=== PATIENT | male | born 1960 | race Caucasian/White ===

== ENCOUNTER 2017-02-05 12:43 | Inpatient (IN) | payer MEDICAID ==
[~2017-02-05] VITALS: Ht 182.9 cm; Wt 70.3 kg
[2017-02-05] MEDS ORDERED: IOHEXOL-300 100 ML BOTTLE ONE (13:26)
[2017-02-05] MEDS ORDERED: SODIUM CHLORIDE 0.9% 10ML VIAL ONE (13:26)
[2017-02-05] MEDS ORDERED: SODIUM CHLORIDE 0.9% 1000ML BAG (SEPSIS BOLUS) IV ONE (13:30)
[2017-02-05 13:53] LABS: BASOPHILS % 1.2 % (0.0-2.0); EOSINOPHILS % 0.5 % (0.0-5.0); HEMATOCRIT. 37.4 % (42.0-52.0); HEMOGLOBIN. 12.7 g/dL (14.0-18.0); LYMPHOCYTES % 19.9 % (20.0-50.0); MEAN CORPUSCULAR HEMOGLOBIN 31.3 pg (28.0-32.0); MEAN CORPUSCULAR VOLUME 92.5 fL (80.0-94.0); MEAN PLATELET VOLUME 8.1 fl (7.4-10.4); MONOCYTES % 7.6 % (2.0-8.0); NEUTROPHILS % 70.8 % (40.0-76.0); PLATELET 250 x1000/uL (130-400); RED BLOOD CELL COUNT 4.04 mill/uL (4.7-6.1); RED CELL DISTRIBUTION WIDTH 14.2 % (11.6-14.6)
[2017-02-05 13:55] LABS: PARTIAL THROMBOPLASTIN TIME 28.4 sec (23.4-31.0); PROTHROMBIN TIME 10.7 sec (9.4-11.6)
[2017-02-05 14:01] LABS: CARBON DIOXIDE 23 mEq/L (21-32); CHLORIDE 105 mEq/L (98-107); ETHANOL BLOOD 64 mg/dL
[2017-02-05 14:04] LABS: TROPONIN I < 0.02 ng/mL (0.00-0.04)
[2017-02-05] MEDS ORDERED: POTASSIUM CHLORIDE 20MEQ TABLET SR PO ONE (14:30)
[2017-02-05] MEDS ORDERED: MAGNESIUM 1 G PREMIX 100 ML IV ONE (14:30)
[2017-02-05 14:35] LABS: CLARITY URINE TURBID (CLEAR); COLOR URINE YELLOW (YELLOW); GLUCOSE URINE TRACE (NEGATIVE); KETONES URINE NEGATIVE (NEGATIVE); LEUKOCYTE ESTERASE URINE 3+ (NEGATIVE); NITRITE URINE NEGATIVE (NEGATIVE); OCCULT BLOOD URINE 1+ (NEGATIVE); PH URINE 7.5 (4.5-8.0); PROTEIN URINE 3+ (NEGATIVE); SPECIFIC GRAVITY URINE 1.012 (1.005-1.030); UROBILINOGEN URINE 0.2 E.U./dL (0.2-1.0)
[2017-02-05 14:57] LABS: *AMPHETAMINES SCREEN URINE NEGATIVE (NEGATIVE); *BARBITURATES SCREEN URINE NEGATIVE (NEGATIVE); *BENZODIAZEPINES SCREEN URINE NEGATIVE (NEGATIVE); *COCAINE SCREEN URINE NEGATIVE (NEGATIVE); CANNABINOID URINE SCREEN NEGATIVE (NEGATIVE); METHADONE URINE SCREEN NEGATIVE (NEGATIVE); OPIATES URINE SCREEN NEGATIVE (NEGATIVE); PHENCYCLIDINE URINE SCREEN NEGATIVE (NEGATIVE)
[2017-02-05] MEDS ORDERED: CEFTRIAXONE 1 G PREMIX 50 ML IV ONE (15:30)
[2017-02-05] MEDS ORDERED: HYDROCODONE/ACETAMINOPHEN 5/325MG TABLET PO PRN (17:30)
[2017-02-05] MEDS ORDERED: ONDANSETRON HCL 4MG/2ML VIAL IV PRN (17:30)
[2017-02-05] MEDS: LORAZEPAM 2MG/ML CPJ IV PRN ×2 (18:00→23:39)
[2017-02-05 22:50] VITALS: BP 168/88
[2017-02-05 23:00] VITALS: BP 168/88
[2017-02-05] MEDS ORDERED: DEXT 5%/0.45% NACL 500ML 500 ML IV ONE (23:00)
[2017-02-06] VITALS: BP 149/81
[2017-02-06] MEDS ORDERED: ASPI-1159 PO (00:24)
[2017-02-06] MEDS ORDERED: TRAZ-132 PO (00:24)
[2017-02-06] MEDS ORDERED: HYDR-523 PO (00:24)
[2017-02-06] MEDS ORDERED: PANT40TA4 PO (00:24)
[2017-02-06] MEDS: DEXT 5%/0.45% NACL KCL 20MEQ/L 1,000 ML IV SCH ×2 (03:15→13:39)
[2017-02-06 04:00] VITALS: BP 159/84
[2017-02-06] MEDS: LORAZEPAM 2MG/ML CPJ IV PRN ×3 (07:00→20:19)
[2017-02-06 07:49] LABS: BASOPHILS % 0.7 % (0.0-2.0); EOSINOPHILS % 0.5 % (0.0-5.0); HEMOGLOBIN. 13.3 g/dL (14.0-18.0); LYMPHOCYTES % 11.8 % (20.0-50.0); MEAN CORPUSCULAR HEMOGLOBIN 31.4 pg (28.0-32.0); MEAN CORPUSCULAR VOLUME 91.8 fL (80.0-94.0); MEAN PLATELET VOLUME 8.4 fl (7.4-10.4); MONOCYTES % 5.6 % (2.0-8.0); NEUTROPHILS % 81.4 % (40.0-76.0); PLATELET 237 x1000/uL (130-400); RED BLOOD CELL COUNT 4.25 mill/uL (4.7-6.1); RED CELL DISTRIBUTION WIDTH 13.9 % (11.6-14.6)
[2017-02-06 08:00] VITALS: BP 155/85
[2017-02-06 08:28] LABS: CHLORIDE 104 mEq/L (98-107)
[2017-02-06] MEDS: ENOXAPARIN 40MG/0.4ML SYR SUBCUT SCH (08:31)
[2017-02-06] MEDS: FAMOTIDINE 20MG/2ML VIAL IV SCH ×2 (08:31→20:19)
[2017-02-06 08:35] LABS: CARBON DIOXIDE 27 mEq/L (21-32)
[2017-02-06] MEDS ORDERED: PANTOPRAZOLE SODIUM 40 MG/VIAL IV SCH (09:00)
[2017-02-06 12:00] VITALS: BP 148/84
[2017-02-06 12:03] LABS: BASOPHILS % 0.7 % (0.0-2.0); EOSINOPHILS % 0.3 % (0.0-5.0); HEMATOCRIT. 38.9 % (42.0-52.0); HEMOGLOBIN. 13.2 g/dL (14.0-18.0); LYMPHOCYTES % 12.9 % (20.0-50.0); MEAN CORPUSCULAR HEMOGLOBIN 31.2 pg (28.0-32.0); MEAN CORPUSCULAR VOLUME 92.3 fL (80.0-94.0); MEAN PLATELET VOLUME 8.4 fl (7.4-10.4); NEUTROPHILS % 80.1 % (40.0-76.0); PLATELET 235 x1000/uL (130-400); RED BLOOD CELL COUNT 4.21 mill/uL (4.7-6.1); RED CELL DISTRIBUTION WIDTH 13.7 % (11.6-14.6)
[2017-02-06] MEDS ORDERED: PIPERACILLIN SODIUM/TAZOBACTAM 4.5 G in DEXT 5% WATER 100 ML IV SCH (15:00)
[2017-02-06 16:00] VITALS: BP 163/107
[2017-02-06] MEDS ORDERED: CLONIDINE 0.1MG TABLET PO PRN (16:00)
[2017-02-06] MEDS: CEFTRIAXONE 1 G PREMIX 50 ML IV SCH (16:07)
[2017-02-06 20:00] VITALS: BP 125/78
[2017-02-07] VITALS: BP 128/66
[2017-02-07] MEDS: DEXT 5%/0.45% NACL KCL 20MEQ/L 1,000 ML IV SCH ×2 (02:43→10:07)
[2017-02-07 04:00] VITALS: BP 149/81
[2017-02-07 06:27] LABS: BASOPHILS % 0.6 % (0.0-2.0); EOSINOPHILS % 1.8 % (0.0-5.0); HEMATOCRIT. 39.2 % (42.0-52.0); HEMOGLOBIN. 13.4 g/dL (14.0-18.0); LYMPHOCYTES % 19.4 % (20.0-50.0); MEAN CORPUSCULAR HEMOGLOBIN 31.8 pg (28.0-32.0); MEAN CORPUSCULAR VOLUME 93.1 fL (80.0-94.0); MEAN PLATELET VOLUME 8.3 fl (7.4-10.4); MONOCYTES % 7.3 % (2.0-8.0); NEUTROPHILS % 70.9 % (40.0-76.0); PLATELET 216 x1000/uL (130-400); RED BLOOD CELL COUNT 4.21 mill/uL (4.7-6.1); RED CELL DISTRIBUTION WIDTH 13.9 % (11.6-14.6)
[2017-02-07 06:32] LABS: CARBON DIOXIDE 29 mEq/L (21-32); CHLORIDE 107 mEq/L (98-107)
[2017-02-07 08:00] VITALS: BP 131/74
[2017-02-07] MEDS: FAMOTIDINE 20MG/2ML VIAL IV SCH (08:39)
[2017-02-07] MEDS: LORAZEPAM 2MG/ML CPJ IV PRN ×2 (08:40→15:13)
[2017-02-07] MEDS: ENOXAPARIN 40MG/0.4ML SYR SUBCUT SCH (08:40)
[2017-02-07 12:00] VITALS: BP 127/68
[2017-02-07] MEDS: CEFTRIAXONE 1 G PREMIX 50 ML IV SCH (15:12)
[2017-02-07 16:23] VITALS: BP 151/83
[2017-02-07 17:08] VITALS: BP 125/78
[2017-02-07] MEDS ORDERED: PHENAZOPYRIDINE HCL 100MG TABLET PO SCH (17:40)
== END 2017-02-07 17:25 | disposition home or self-care (01) | DRG 720 ==
LOC: ER 13:10 → 8WST 15:53 → INTOOBSV 15:53 → OBSVTOIN 15:53 → EDBEDREQ 15:54 → EDBEDREQTM 15:54 → ENRESERV 18:57 → CANRESERV 18:57 → EDBEDREQSVC 20:31 → ENRESERV 20:59
PROVIDERS: ADMIT Internal Medicine; ATTEND Internal Medicine
DX: A41.9 Sepsis, unspecified organism (principal); E43 Unspecified severe protein-calorie malnutrition; E83.42 Hypomagnesemia; N39.0 Urinary tract infection, site not specified; E83.51 Hypocalcemia; F32.9 Major depressive disorder, single episode, unspecified; E87.6 Hypokalemia; E86.0 Dehydration; F17.200 Nicotine dependence, unspecified, uncomplicated; F10.10 Alcohol abuse, uncomplicated; Z59.0 Homelessness; Z88.2 Allergy status to sulfonamides; Z88.8 Allergy status to other drugs, medicaments and biological substances
CPT/HCPCS: 36415; 71010; 74177; 80048; 80053; 80076; 80305; 81001; 83605; 83690; 83735; 83880; 84484; 85025; 85610; 85730; 87040; 87077; 87086; 87186; 93005; 96361; 96365; 96367; 96375; 96376; 99291; A4216; C1893; G0482; J0696; J1650; J2060; J2543; J3475; J3490; J7030; J7040; J7060; Q9967

== ENCOUNTER 2017-05-16 09:06 | Emergency (ER) | payer MEDICAID ==
[~2017-05-16] VITALS: Ht 177.8 cm; Wt 70.0 kg
[~2017-05-16 09:06] MED LIST: ASPI-1159 PO; HYDR-523 PO; PANT40TA4 PO; TRAZ-132 PO
[2017-05-16] MEDS ORDERED: SODIUM CHLORIDE 0.9% 3,000 ML IV ONE (10:10)
[2017-05-16 10:28] LABS: EOSINOPHILS % 1.1 % (0.0-5.0); HEMATOCRIT. 38.1 % (42.0-52.0); HEMOGLOBIN. 12.8 g/dL (14.0-18.0); LYMPHOCYTES % 22.9 % (20.0-50.0); MEAN CORPUSCULAR HEMOGLOBIN 32.4 pg (28.0-32.0); MEAN CORPUSCULAR VOLUME 96.5 fL (80.0-94.0); MEAN PLATELET VOLUME 7.5 fl (7.4-10.4); MONOCYTES % 12.2 % (2.0-8.0); NEUTROPHILS % 62.8 % (40.0-76.0); PLATELET 301 x1000/uL (130-400); RED BLOOD CELL COUNT 3.95 mill/uL (4.7-6.1); RED CELL DISTRIBUTION WIDTH 15.1 % (11.6-14.6)
[2017-05-16 11:27] LABS: GLUCOSE URINE NEGATIVE (NEGATIVE); KETONES URINE NEGATIVE (NEGATIVE); LEUKOCYTE ESTERASE URINE NEGATIVE (NEGATIVE); NITRITE URINE NEGATIVE (NEGATIVE); OCCULT BLOOD URINE 2+ (NEGATIVE); PROTEIN URINE NEGATIVE (NEGATIVE); SPECIFIC GRAVITY URINE 1.007 (1.005-1.030); UROBILINOGEN URINE 0.2 E.U./dL (0.2-1.0)
[2017-05-16 11:28] LABS: CLARITY URINE CLEAR (CLEAR); COLOR URINE YELLOW (YELLOW)
[2017-05-16 13:39] VITALS: BP 143/72
== END 2017-05-16 15:33 | disposition home or self-care (01) ==
LOC: ER 09:06
DX: T83.098A Other mechanical complication of other urinary catheter, initial encounter (principal); F12.10 Cannabis abuse, uncomplicated; F32.9 Major depressive disorder, single episode, unspecified; F17.200 Nicotine dependence, unspecified, uncomplicated; R50.9 Fever, unspecified; Z59.0 Homelessness; Z79.82 Long term (current) use of aspirin; Z88.2 Allergy status to sulfonamides
CPT/HCPCS: 36415; 51702; 81001; 85025; 99284; Z7610; J7030; A4315

== ENCOUNTER 2017-06-18 18:40 | Emergency (ER) | payer MEDICAID ==
[~2017-06-18] VITALS: Ht 185.4 cm; Wt 69.0 kg
[2017-06-18 23:06] LABS: EOSINOPHILS % 2.2 % (0.0-5.0); HEMATOCRIT. 36.9 % (42.0-52.0); HEMOGLOBIN. 12.3 g/dL (14.0-18.0); LYMPHOCYTES % 25.1 % (20.0-50.0); MEAN CORPUSCULAR HEMOGLOBIN 31.8 pg (28.0-32.0); MEAN CORPUSCULAR VOLUME 95.3 fL (80.0-94.0); MEAN PLATELET VOLUME 7.7 fl (7.4-10.4); MONOCYTES % 10.4 % (2.0-8.0); NEUTROPHILS % 61.3 % (40.0-76.0); PLATELET 255 x1000/uL (130-400); RED BLOOD CELL COUNT 3.87 mill/uL (4.7-6.1); RED CELL DISTRIBUTION WIDTH 13.9 % (11.6-14.6)
[2017-06-18 23:12] LABS: PROTHROMBIN TIME 10.7 sec (9.4-11.6)
[2017-06-18 23:13] LABS: CHLORIDE 109 mEq/L (98-107)
[2017-06-18 23:23] LABS: CARBON DIOXIDE 26 mEq/L (21-32)
[2017-06-18 23:30] LABS: CLARITY URINE CLEAR (CLEAR); COLOR URINE YELLOW (YELLOW); KETONES URINE 1+ (NEGATIVE); LEUKOCYTE ESTERASE URINE 1+ (NEGATIVE); NITRITE URINE NEGATIVE (NEGATIVE); OCCULT BLOOD URINE NEGATIVE (NEGATIVE); PROTEIN URINE NEGATIVE (NEGATIVE); SPECIFIC GRAVITY URINE 1.024 (1.005-1.030); UROBILINOGEN URINE 0.2 E.U./dL (0.2-1.0)
[2017-06-19] MEDS ORDERED: KETOROLAC 30MG/ML VIAL IM ONE (00:45)
[2017-06-19] MEDS ORDERED: LIDOCAINE HCL 2% JELLY 5ML TOP ONE (01:15)
[2017-06-19 03:40] VITALS: BP 145/79
== END 2017-06-19 03:40 | disposition home or self-care (01) ==
LOC: ER 19:28
DX: N39.0 Urinary tract infection, site not specified (principal); F12.10 Cannabis abuse, uncomplicated; Z79.82 Long term (current) use of aspirin
CPT/HCPCS: 36415; 80053; 81001; 85025; 85610; 87077; 87086; 87186; 96372; 99284; J1885; Z7610; 99283; A4315

== ENCOUNTER 2017-07-23 20:44 | Emergency (ER) | payer MEDICAID ==
[~2017-07-23] VITALS: Ht 167.6 cm; Wt 70.0 kg
[2017-07-24] MEDS ORDERED: KETOROLAC 60MG/2ML VIAL IM ONE (04:00)
[2017-07-24 05:12] VITALS: BP 138/85
== END 2017-07-24 05:25 | disposition home or self-care (01) ==
LOC: ER 20:44
DX: R33.8 Other retention of urine (principal); M19.90 Unspecified osteoarthritis, unspecified site; F12.10 Cannabis abuse, uncomplicated; Z88.2 Allergy status to sulfonamides; Z88.1 Allergy status to other antibiotic agents; Z79.82 Long term (current) use of aspirin
CPT/HCPCS: 51702; 96372; 99284; J1885; Z7610; A4315

== ENCOUNTER 2017-09-11 10:04 | Emergency (ER) | payer MEDICAID ==
[~2017-09-11] VITALS: Ht 185.4 cm; Wt 80.0 kg
[2017-09-11] MEDS ORDERED: SODIUM CHLORIDE 0.9% 1,000 ML IV ONE ×2 (10:38→12:15)
[2017-09-11] MEDS ORDERED: DEXTROSE 50% WATER 50ML SYRINGE IV ONE ×2 (10:39→10:45)
[2017-09-11] MEDS ORDERED: FAMOTIDINE 20MG/2ML VIAL IV ONE (10:45)
[2017-09-11] MEDS ORDERED: DEXTROSE 50% WATER 50ML SYRINGE IV PRN (10:45)
[2017-09-11 11:07] LABS: HEMATOCRIT. 40.1 % (42.0-52.0); HEMOGLOBIN. 13.6 g/dL (14.0-18.0); MEAN CORPUSCULAR HEMOGLOBIN 30.5 pg (28.0-32.0); MEAN PLATELET VOLUME 8.4 fl (7.4-10.4); PLATELET 230 x1000/uL (130-400); RED BLOOD CELL COUNT 4.46 mill/uL (4.7-6.1)
[2017-09-11 11:09] LABS: CHLORIDE 101 mEq/L (98-107)
[2017-09-11 11:15] LABS: ETHANOL BLOOD 110 mg/dL
[2017-09-11 11:23] LABS: *AMPHETAMINES SCREEN URINE PRESUMTIVE POSITIVE (NEGATIVE); *BARBITURATES SCREEN URINE NEGATIVE (NEGATIVE); *BENZODIAZEPINES SCREEN URINE NEGATIVE (NEGATIVE); *COCAINE SCREEN URINE PRESUMTIVE POSITIVE (NEGATIVE); CANNABINOID URINE SCREEN NEGATIVE (NEGATIVE); METHADONE URINE SCREEN NEGATIVE (NEGATIVE); OPIATES URINE SCREEN NEGATIVE (NEGATIVE); PHENCYCLIDINE URINE SCREEN NEGATIVE (NEGATIVE)
[2017-09-11 11:45] LABS: PLATELET ESTIMATE NORMAL
[2017-09-11 13:52] VITALS: BP 171/91
== END 2017-09-11 14:59 | disposition home or self-care (01) ==
LOC: ER 10:10
DX: E86.0 Dehydration (principal); E46 Unspecified protein-calorie malnutrition; I10 Essential (primary) hypertension; F10.20 Alcohol dependence, uncomplicated; F12.10 Cannabis abuse, uncomplicated; Z79.82 Long term (current) use of aspirin; Z88.2 Allergy status to sulfonamides
CPT/HCPCS: 36415; 80053; 80305; 82962; 85025; 96361; 96374; 96375; 99284; G0482; J3490; J7030; Z7610

== ENCOUNTER 2017-09-12 16:11 | Emergency (ER) | payer MEDICAID ==
[~2017-09-12] VITALS: Ht 185.4 cm; Wt 71.0 kg
[2017-09-12 17:38] LABS: HEMATOCRIT. 40.4 % (42.0-52.0); HEMOGLOBIN. 13.7 g/dL (14.0-18.0); MEAN CORPUSCULAR HEMOGLOBIN 30.4 pg (28.0-32.0); MEAN PLATELET VOLUME 8.5 fl (7.4-10.4); PLATELET 218 x1000/uL (130-400); RED BLOOD CELL COUNT 4.49 mill/uL (4.7-6.1); RED CELL DISTRIBUTION WIDTH 15.4 % (11.6-14.6)
[2017-09-12 17:40] LABS: CHLORIDE 99 mEq/L (98-107)
[2017-09-12 17:46] LABS: ETHANOL BLOOD 91 mg/dL
[2017-09-12 17:54] LABS: PLATELET ESTIMATE NORMAL
[2017-09-12 18:40] LABS: CLARITY URINE CLOUDY (CLEAR); COLOR URINE YELLOW (YELLOW); KETONES URINE 1+ (NEGATIVE); LEUKOCYTE ESTERASE URINE 3+ (NEGATIVE); NITRITE URINE POSITIVE (NEGATIVE); OCCULT BLOOD URINE 1+ (NEGATIVE); PROTEIN URINE TRACE (NEGATIVE); UROBILINOGEN URINE 0.2 E.U./dL (0.2-1.0)
[2017-09-12 18:58] LABS: *BARBITURATES SCREEN URINE NEGATIVE (NEGATIVE); *BENZODIAZEPINES SCREEN URINE NEGATIVE (NEGATIVE)
[2017-09-12 18:59] LABS: *AMPHETAMINES SCREEN URINE NEGATIVE (NEGATIVE); *COCAINE SCREEN URINE PRESUMTIVE POSITIVE (NEGATIVE); METHADONE URINE SCREEN NEGATIVE (NEGATIVE); OPIATES URINE SCREEN NEGATIVE (NEGATIVE); PHENCYCLIDINE URINE SCREEN NEGATIVE (NEGATIVE)
[2017-09-12 19:01] LABS: CANNABINOID URINE SCREEN NEGATIVE (NEGATIVE)
[2017-09-12] MEDS ORDERED: CHLORDIAZEPOXIDE 25MG CAPSULE PO ONE (22:30)
[2017-09-12] MEDS ORDERED: TRAZODONE HCL 50MG TABLET PO ONE (22:30)
[2017-09-12] MEDS ORDERED: CEFTRIAXONE 1 G PREMIX 50 ML IV ONE (22:30)
[2017-09-12] MEDS ORDERED: TRAZODONE HCL 50MG TABLET PO SCH (23:59)
[2017-09-13] MEDS ORDERED: CHLORDIAZEPOXIDE 25MG CAPSULE PO ONE (06:30)
[2017-09-13 07:04] LABS: BASOPHILS % 0.6 % (0.0-2.0); EOSINOPHILS % 0.2 % (0.0-5.0); HEMATOCRIT. 38.1 % (42.0-52.0); HEMOGLOBIN. 12.9 g/dL (14.0-18.0); LYMPHOCYTES % 11.4 % (20.0-50.0); MEAN CORPUSCULAR VOLUME 88.8 fL (80.0-94.0); MEAN PLATELET VOLUME 8.4 fl (7.4-10.4); MONOCYTES % 8.7 % (2.0-8.0); NEUTROPHILS % 79.1 % (40.0-76.0); PLATELET 179 x1000/uL (130-400); RED BLOOD CELL COUNT 4.29 mill/uL (4.7-6.1); RED CELL DISTRIBUTION WIDTH 15.1 % (11.6-14.6)
[2017-09-13 09:10] VITALS: BP 116/78
== END 2017-09-13 10:40 | disposition home or self-care (01) ==
LOC: ER 16:33
DX: R45.851 Suicidal ideations (principal); R30.0 Dysuria; R35.0 Frequency of micturition; M54.5 Low back pain; M19.90 Unspecified osteoarthritis, unspecified site; F17.200 Nicotine dependence, unspecified, uncomplicated; F12.10 Cannabis abuse, uncomplicated; F14.10 Cocaine abuse, uncomplicated; Z88.2 Allergy status to sulfonamides; Z88.1 Allergy status to other antibiotic agents; Z88.8 Allergy status to other drugs, medicaments and biological substances
CPT/HCPCS: 36415; 80053; 80305; 80307; 80329; 81003; 85025; 87077; 87086; 87186; 96365; 99284; G0482; J0696

== ENCOUNTER 2018-01-31 13:15 | Emergency (ER) | payer MEDICAID ==
[~2018-01-31] VITALS: Ht 175.3 cm; Wt 72.0 kg
[~2018-01-31 13:15] MED LIST changes: -TRAZ-132 PO; +TRAZ-213 PO
[2018-01-31 13:19] VITALS: BP 125/68
== END 2018-01-31 14:48 | disposition left against medical advice (07) ==
LOC: ER 13:22
DX: R11.2 Nausea with vomiting, unspecified (principal); F14.10 Cocaine abuse, uncomplicated; F12.10 Cannabis abuse, uncomplicated; I10 Essential (primary) hypertension; Z53.21 Procedure and treatment not carried out due to patient leaving prior to being seen by health care provider